=== PATIENT | female | born 1975 | race Caucasian/White ===

== ENCOUNTER 2022-06-08 20:48 | Emergency (ER) | payer MEDICAID ==
[~2022-06-08] VITALS: Ht 167.6 cm; Wt 93.4 kg
[2022-06-08 21:21] VITALS: BP_SYST 131
--- NOTE | 2022-06-08 21:26 | NUR ---
Patient triaged and placed in waiting room. VSS and patient appears in no acute distress at this time. Accompanied by SPOUSE, awaiting available bed, and MD notified of need for MSE.
[2022-06-08] MEDS ORDERED: KETOROLAC TROMETHAMINE 30 MG VIAL IVP ONE (22:00)
[2022-06-08 22:20] LABS: BASOPHILS # (AUTO) 0.1 K/uL (0.0-0.2); BASOPHILS % (AUTO) 0.7 % (0.0-2.0); EOSINOPHILS # (AUTO) 0.2 K/uL (0.0-0.4); EOSINOPHILS % (AUTO) 1.7 % (0.0-4.0); HEMATOCRIT 30.7 % (36-48); HEMOGLOBIN 9.7 g/dL (12.0-16.0); LYMPHOCYTES # (AUTO) 1.9 K/uL (1.0-5.5); LYMPHOCYTES % (AUTO) 21.8 % (20.5-51.5); MEAN CORPUSCULAR HEMOGLOBIN 22 pg (27-31); MEAN CORPUSCULAR HGB CONC 32 % (32-36); MEAN CORPUSCULAR VOLUME 71 fL (79.0-98.0); MONOCYTES # (AUTO) 0.6 K/uL (0.0-1.0); MONOCYTES % (AUTO) 6.8 % (1.7-9.3); NEUTROPHILS # (AUTO) 6.2 K/uL (1.8-7.7); PLATELET COUNT (AUTO) 331 K/uL (130-430); RED BLOOD CELL COUNT(AUTO) 4.33 MIL/uL (4.2-6.2); RED CELL DISTRIBUTION WIDTH 16.9 % (9.0-15.0); WHITE BLOOD COUNT (AUTO) 8.9 K/uL (4.8-10.8)
[2022-06-08 22:31] LABS: ALANINE AMINOTRANSFERASE 27 U/L (12-78); ALBUMIN 3.2 g/dL (3.4-4.8); ANION GAP 12 (5-15); ASPARTATE AMINOTRANSFERASE 17 U/L (10-37); CALCIUM 8.7 mg/dL (8.4-11.0); CHLORIDE 106 mmol/L (98-107); CREATININE 0.55 mg/dL (0.55-1.30); GLUCOSE 127 mg/dL (70-99); LIPASE 88 U/L (73-393); UREA NITROGEN, BLOOD 18 mg/dL (8-21)
[2022-06-08 22:33] LABS: GFR AFRICAN AMERICAN 154 mL/min (>90)
--- NOTE | 2022-06-08 22:40 | NUR ---
pt c/o abd pain x 2 days. pt describe pain as sharp pain. pt is on the monitor. family is at bedside
[2022-06-08 22:48] LABS: TOTAL BILIRUBIN < 0.1 mg/dL (0.0-1.0)
[2022-06-08 23:52] LABS: BILIRUBIN,URINE NEGATIVE (NEGATIVE); CLARITY/URINE CLEAR (CLEAR); COLOR,URINE YELLOW (YELLOW); GLUCOSE,URINE NEGATIVE (NEGATIVE); KETONES,URINE 2+ (NEGATIVE); LEUKOCYTE ESTERASE ,URINE 3+ (NEGATIVE); NITRITE, URINE NEGATIVE (NEGATIVE); PH,URINE 6.5 (5.0-8.0); PROTEIN URINE TRACE (NEGATIVE); UROBILINOGEN,URINE 0.2 (0.2-1.0)
[2022-06-08 23:55] LABS: BLOOD, URINE TRACE (NEGATIVE)
[2022-06-09 00:09] LABS: URINE SULFO SALICYLIC ACID NEGATIVE (NEGATIVE)
[2022-06-09 00:13] LABS: BACTERIA,URINE FEW /HPF (None Seen); RBC,URINE 0-3 /HPF (0-3)
[2022-06-09 00:14] LABS: MUCUS,URINE None Seen /LPF (None Seen)
--- NOTE | 2022-06-09 00:17 | NUR ---
pt is ambulatory. pt states pain is better
[2022-06-09] MEDS ORDERED: IBUP-1969 PO (01:11)
[2022-06-09] MEDS ORDERED: CEPH-548 PO (01:11)
[2022-06-09] MEDS ORDERED: cephALEXin 500 MG CAPSULE PO ONE (01:15)
== END 2022-06-09 01:48 | disposition home or self-care (01) ==
LOC: SED 20:48
DX: N39.0 Urinary tract infection, site not specified (principal); N83.291 Other ovarian cyst, right side; D50.9 Iron deficiency anemia, unspecified; R10.31 Right lower quadrant pain; Z79.899 Other long term (current) drug therapy
CPT/HCPCS: 99285; 74176; 96374; 76830; 80053; 81000; 83690; 85025; 87086; 36415; 76376; J1885

== ENCOUNTER → 2023-07-11 | Emergency (ER) | payer MEDICAID ==
[~2023-07-11] VITALS: Ht 157.5 cm; Wt 92.5 kg
[~2023-07-11] MED LIST: CEPH-548 PO; IBUP-1969 PO; NAPR-690 PO
[2023-07-11 18:52] VITALS: BP_SYST 120; PULSE 85; RESP 18; TEMP 98.3; O2SAT 98
[2023-07-11] MEDS: KETOROLAC TROMETHAMINE 30 MG VIAL IM ONE (19:34)
[2023-07-11 22:50] VITALS: BP_SYST 114; PULSE 80; RESP 16; TEMP 98.6; O2SAT 97
== END | disposition home or self-care (01) ==
LOC: SED 18:41
DX: S83.92XA Sprain of unspecified site of left knee, initial encounter (principal); L60.0 Ingrowing nail; Z79.899 Other long term (current) drug therapy; W22.8XXA Striking against or struck by other objects, initial encounter; Y93.89 Activity, other specified; Y92.89 Other specified places as the place of occurrence of the external cause; Y99.8 Other external cause status
CPT/HCPCS: 99284; 73564; 11730; 96372; J1885